=== PATIENT | female | born 1980 | race Caucasian/White ===

== ENCOUNTER 2016-10-29 19:40 | Emergency (ER) | payer BC, OTHER ==
[2016-10-29] MEDS ORDERED: METOCLOPRAMIDE 5 MG/ML 2 ML VIAL IVP STA (21:35)
[2016-10-29] MEDS ORDERED: KETOROLAC 30 MG/ML 1 ML VIAL IVP STA (21:35)
[2016-10-29] MEDS ORDERED: diphenhydrAMINE 50 MG/ML 1 ML VIAL IVP STA (21:35)
--- NOTE | 2016-10-29 22:40 | ED ---
Headache HPI - General Chief Complaint: Headache Stated Complaint: migraine Time Seen by Provider: 10/29/16 20:15 Mode of arrival: ambulatory Limitations: no limitations - History of Present Illness Initial Comments: 36-year-old female presented for evaluation of headache that started yesterday. She states that she has a past medical history of normal pressure hydrocephalus for which she follows with a neurologist. At the time of her diagnosis in May 2017 she received a lumbar puncture which improved some of her symptoms of dizziness at that time but her headache persisted. An MRI at the time stated in the diagnosis of normal pressure hydrocephalus but her neurologist after further review raised concern for a Chiari malformation and a possible AVM. She was referred to a neurosurgeon who she is going to see on November 10 at [facility] (Dr. Guallpa). His current headache is similar previous ones but was not responsive to her home medications for management. She states that there is associated vomiting but denies any vision changes or other associated symptoms. She denies any fever, chills, ataxia, syncope. - Related Data Home Medications Medication Instructions Recorded Confirmed Ascorbic Acid [Vitamin C] 500 mg PO DAILY 05/15/16 10/29/16 Cholecalciferol [Vitamin D3] 1,000 unit PO DAILY 05/15/16 10/29/16 Escitalopram [Lexapro] 10 mg PO DAILY 05/15/16 10/29/16 Ferrous Sulfate [Feosol] 325 mg PO DAILY 05/15/16 10/29/16 Topiramate [Topamax] 100 mg PO BID 05/15/16 10/29/16 Multivitamins, Thera [Multivitamin] 1 tab PO DAILY 05/27/16 10/29/16 Rizatriptan Benzoate [Maxalt] 10 mg PO DAILY PRN 05/27/16 10/29/16 Aspirin/Acetaminophen/Caffeine 2 tab PO Q8H PRN 10/29/16 10/29/16 [Excedrin Migraine Caplet] Naproxen Sodium [Aleve] 440 mg PO Q6H PRN 10/29/16 10/29/16 Allergies Allergy/AdvReac Type Severity Reaction Status Date / Time latex Allergy Mild Rash/Hives Verified 10/29/16 19:58 Review of Systems ROS Statement: Those systems with pertinent positive or pertinent negative responses have been documented in the HPI. ROS Other: All systems not noted in ROS Statement are negative. Constitutional: Denies: fever, chills Eyes: Denies: eye pain, eye discharge, vision change ENT: Denies: ear pain, throat pain, hearing loss Respiratory: Denies: cough, dyspnea, wheezes, hemoptysis Cardiovascular: Denies: chest pain, palpitations Endocrine: Denies: polydipsia, polyuria Gastrointestinal: Reports: nausea, vomiting. Denies: abdominal pain Genitourinary: Denies: urgency, dysuria Musculoskeletal: Denies: back pain, myalgia Skin: Denies: rash, lesions Neurological: Reports: headache. Denies: weakness, numbness, paresthesias, confusion, abnormal gait, vertigo Psychiatric: Denies: anxiety, depression Past Medical History Past Medical History: Diabetes Mellitus Additional Past Medical History / Comment(s): gestational diabetes hydrocephalus, migraines History of Any Multi-Drug Resistant Organisms: MRSA Date of last positivie culture/infection: 2010 MDRO Source:: upper left thigh Additional Past Surgical History / Comment(s): 1. Laparoscopy 2. D&C Past Anesthesia/Blood Transfusion Reactions: No Reported Reaction Past Psychological History: No Psychological Hx Reported Smoking Status: Never smoker Past Alcohol Use History: Rare Past Drug Use History: None Reported - Past Family History Mother Family Medical History: Cancer General Exam Limitations: no limitations General appearance: alert, in no apparent distress Head exam: Present: atraumatic, normocephalic Eye exam: Present: normal appearance, PERRL, EOMI. Absent: scleral icterus, conjunctival injection, nystagmus Pupils: Present: normal accommodation. Absent: irregular, unequal, miosis, mydriatic ENT exam: Present: normal exam, normal oropharynx, mucous membranes moist Neck exam: Present: normal inspection, tenderness Respiratory exam: Present: normal lung sounds bilaterally. Absent: respiratory distress, wheezes, rales Cardiovascular Exam: Present: regular rate, normal rhythm. Absent: bradycardia , tachycardia, irregular rhythm GI/Abdominal exam: Present: soft. Absent: distended, tenderness, guarding Rectal exam: Present: deferred Extremities exam: Present: normal inspection, full ROM Back exam: Present: normal inspection, full ROM Neurological exam: Present: alert, oriented X3, CN II-XII intact, normal gait, motor sensory deficit, reflexes normal. Absent: altered, abnormal gait Psychiatric exam: Present: normal affect, normal mood Skin exam: Present: warm, dry, intact Course Vital Signs 10/29/16 10/29/16 10/29/16 19:48 21:45 22:50 Temperature 98.7 F 98.5 F 98.2 F Pulse Rate 73 73 68 Respiratory 18 16 18 Rate Blood Pressure 123/73 116/70 114/68 O2 Sat by Pulse 98 100 100 Oximetry Medical Decision Making - Medical Decision Making 36-year-old female with past medical history of normal pressure hydrocephalus diagnosed in May 2016 presented for evaluation of headache that she's had since yesterday. She states that her normal medications have not provided any relief although the headache is similar to previous presentations. At the time of her diagnosis of normal pressure hydrocephalus she did receive a lumbar puncture which did not improve her headache but improved some of her other symptoms of dizziness. She has an appointment to see a neurosurgeon at [facility] as the MRI at the time of diagnosis of normal pressure hydrocephalus revealed possible Chiari malformation and AVM. Physical exam of the patient reveals tender nerves II through XII intact without focal neurologic deficit. There is no ataxia and the patient has a normal gait and station. Pupils are equal round and reactive to light and accommodation. The rest of her physical examination is benign. We'll provide patient with headache cocktail and reevaluate. On reevaluation the patient had resolution of her headache and was no longer feeling nauseated. Discussion was had with the patient concerning lumbar puncture for symptomatic treatment at this time. Through shared decision making it was decided that a lumbar puncture would not be pursued. She stated that due to her symptoms resolving with medical management she would prefer not to have a lumbar puncture. She was informed that if her symptoms should worsen or persist following discharge she should immediately return to the ED for further evaluation including but not limited to: Intractable headache, dizziness /lightheadedness, vision changes, ataxia, frequent falling, altered mental status, syncope. She was further advised to make an follow-up appointment with her primary care physician and her neurologist. She was also informed that she should make contact with her neurosurgeon she is supposed to have an appointment with on November 10 and informed him of this visit to the ED. The patient acknowledged an understanding of all this information and agreed with this plan of care. Disposition Clinical Impression: Headache Disposition: HOME SELF-CARE Condition: Stable Instructions: Acute Headache (ED) Referrals: Heri Moore III, MD [Primary Care Provider] - 1-2 days Remy Gutierrez MD [STAFF PHYSICIAN] - 1-2 days Time of Disposition: 22:39
[2016-10-29 23:03] VITALS: BP 114/68; PULSE 68; RESP 18; TEMP 98.2
== END 2016-10-29 22:50 | disposition home or self-care (01) ==
LOC: EC 19:40
DX: R51 Headache (principal); G43.909 Migraine, unspecified, not intractable, without status migrainosus; Z79.899 Other long term (current) drug therapy; Z91.040 Latex allergy status; Z86.14 Personal history of Methicillin resistant Staphylococcus aureus infection
CPT/HCPCS: 96374; 96375; 99283; J1200; J2765; J1885

== ENCOUNTER 2018-11-29 20:35 | Emergency (ER) | payer BC ==
[2018-11-29] MEDS ORDERED: METOCLOPRAMIDE 5 MG/ML 2 ML VIAL IVP STA (21:46)
[2018-11-29] MEDS ORDERED: diphenhydrAMINE 50 MG/ML 1 ML VIAL IVP STA (21:46)
[2018-11-29] MEDS ORDERED: SODIUM CHLORIDE 0.9% 500 ML 500 ML IV STA (21:46)
[2018-11-29] MEDS ORDERED: MAGNESIUM SULFATE-D5W PMX 1 GM in DEXTROSE/WATER 1 100ML.BAG IVPB ONE (21:47)
[2018-11-29 22:24] LABS: Anion Gap 11 mmol/L; Blood Urea Nitrogen 9 mg/dL (7-17); Calcium 9.4 mg/dL (8.4-10.2); Carbon Dioxide 18 mmol/L (22-30); Chloride 113 mmol/L (98-107); Glucose 105 mg/dL (74-99); INR 0.9 (<1.2); Partial Thromboplastin Time 22.5 sec (22.0-30.0); Potassium 3.6 mmol/L (3.5-5.1); Prothrombin Time 10.2 sec (9.0-12.0); Sodium 142 mmol/L (137-145)
[2018-11-29 22:27] LABS: Basophils # (A) 0.1 k/uL (0-0.2); Basophils % (A) 1 %; Eosinophils # (A) 0.3 k/uL (0-0.7); Eosinophils % (A) 3 %; HCT 37.1 % (34.0-46.0); HGB 10.8 gm/dL (11.4-16.0); Hypochromasia Moderate; Lymphocytes # (A) 3.2 k/uL (1.0-4.8); Lymphocytes % (A) 35 %; MCH 21.5 pg (25.0-35.0); MCV 74.2 fL (80.0-100.0); Mean Platelet Volume 7.5; Microcytosis Slight; Monocytes # (A) 0.4 k/uL (0-1.0); Monocytes % (A) 4 %; Neutrophils # (A) 5.1 k/uL (1.3-7.7); Neutrophils % (A) 55 %; Platelet Count 265 k/uL (150-450); Poikilocytosis Slight; RBC 4.99 m/uL (3.80-5.40); RDW 15.8 % (11.5-15.5); WBC 9.2 k/uL (3.8-10.6)
--- NOTE | 2018-11-29 22:50 | CT ---
EXAM: CT Head Without Intravenous Contrast CLINICAL HISTORY: Spinal headache post lumbar puncture. History of hydrocephalus. Reason: Headache TECHNIQUE: Axial computed tomography images of the head/brain without intravenous contrast. CTDI is 49.1 mGy and DLP is 1087 mGy-cm. This CT exam was performed using one or more of the following dose reduction techniques: automated exposure control, adjustment of the mA and/or kV according to patient size, and/or use of iterative reconstruction technique. COMPARISON: CT head on 06/08/2016 FINDINGS: Brain: Unremarkable. No hemorrhage. No significant white matter disease. No edema. Ventricles: Stable mild enlargement of the lateral ventricles. Bones/joints: Unremarkable. No acute fracture. Soft tissues: Unremarkable. Sinuses: Polyp versus mucous retention cyst in the right anterior ethmoid air cell. Mastoid air cells: Unremarkable as visualized. No mastoid effusion. IMPRESSION: Stable mild enlargement of the lateral ventricles. No new abnormality identified.
--- NOTE | 2018-11-29 23:35 | ED ---
Headache HPI - General Chief Complaint: Headache Stated Complaint: Spinal headache Time Seen by Provider: 11/29/18 21:12 Source: patient Mode of arrival: ambulatory Limitations: no limitations - History of Present Illness Initial Comments: The patient is a 38-year-old female who presents to the emergency room with complaint of a headache. The patient has a history of pseudotumor. She was seen in Dr. Gutierrez's office yesterday and had a lumbar puncture performed. He did remove 18 mL of fluid from her spinal column. This is his second lumbar puncture that she has had performed. The first time he did remove 22 mL of fluid. She did not have any complications with that procedure. She went home and laid flat for 4 hours as instructed. She then began having a headache at 11 PM last night. When she lays flat, her headache is tolerable. She woke up this morning and took several combinations of medication. She has taken Maxalt and Imitrex. She has also taken [id number] Tylenol and Excedrin. She has had no improvement in her symptoms. 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 She admits that this is global in nature and she has photophobia. It is positional. The pain is made worse when she sits up. She denies any fevers or chills. No nausea or vomiting. She denies any visual changes to include blurred vision, double vision or seeing flashes of light. She denies any unilateral numbness or weakness. She denies any hearing changes. There are no other alleviating, precipitating or modifying factors. - Related Data Home Medications Medication Instructions Recorded Confirmed Ascorbic Acid [Vitamin C] 500 mg PO DAILY 05/15/16 11/29/18 Cholecalciferol [Vitamin D3] 1,000 unit PO DAILY 05/15/16 11/29/18 Ferrous Sulfate [Feosol] 325 mg PO DAILY 05/15/16 11/29/18 Multivitamins, Thera [Multivitamin] 1 tab PO DAILY 05/27/16 11/29/18 Rizatriptan Benzoate [Maxalt] 10 mg PO DAILY PRN 05/27/16 11/29/18 Aspirin/Acetaminophen/Caffeine 2 tab PO Q8H PRN 10/29/16 11/29/18 [Excedrin Migraine Caplet] Naproxen Sodium [Aleve] 440 mg PO Q12HR 11/29/18 11/29/18 SUMAtriptan SUCCINATE [Imitrex] 50 mg PO DAILY PRN 11/29/18 11/29/18 Topiramate [Topamax] 200 mg PO BID 11/29/18 11/29/18 Allergies Allergy/AdvReac Type Severity Reaction Status Date / Time latex Allergy Mild Rash/Hives Verified 11/29/18 21:18 Review of Systems ROS Statement: Those systems with pertinent positive or pertinent negative responses have been documented in the HPI. ROS Other: All systems not noted in ROS Statement are negative. Past Medical History Past Medical History: Diabetes Mellitus Additional Past Medical History / Comment(s): gestational diabetes hydrocephalus, migraines History of Any Multi-Drug Resistant Organisms: MRSA Date of last positivie culture/infection: 2010 MDRO Source:: upper left thigh Additional Past Surgical History / Comment(s): 1. Laparoscopy 2. D&C Past Anesthesia/Blood Transfusion Reactions: No Reported Reaction Past Psychological History: No Psychological Hx Reported Smoking Status: Never smoker Past Alcohol Use History: Rare Past Drug Use History: None Reported - Past Family History Mother Family Medical History: Cancer General Exam Limitations: no limitations General appearance: alert, in no apparent distress Head exam: Present: atraumatic, normocephalic, normal inspection Eye exam: Present: normal appearance, PERRL, EOMI. Absent: scleral icterus, conjunctival injection, periorbital swelling ENT exam: Present: normal exam, mucous membranes moist Neck exam: Present: normal inspection. Absent: tenderness, meningismus, lymphadenopathy Respiratory exam: Present: normal lung sounds bilaterally. Absent: respiratory distress, wheezes, rales, rhonchi, stridor Cardiovascular Exam: Present: regular rate, normal rhythm, normal heart sounds. Absent: systolic murmur, diastolic murmur, rubs, gallop, clicks GI/Abdominal exam: Present: soft, normal bowel sounds. Absent: distended, tenderness, guarding, rebound, rigid Extremities exam: Present: normal inspection, full ROM, normal capillary refill. Absent: tenderness, pedal edema, joint swelling, calf tenderness Back exam: Present: normal inspection Neurological exam: Present: alert, oriented X3, CN II-XII intact, other (Finger to nose is symmetric bilaterally. No dysdiadochokinesia. NIH is 0. Negative pronator drift. No truncal ataxia) Psychiatric exam: Present: normal affect, normal mood Skin exam: Present: warm, dry, intact, normal color. Absent: rash Course Vital Signs 11/29/18 11/29/18 11/29/18 21:05 22:57 23:38 Temperature 97.5 F L 98.4 F Pulse Rate 73 72 69 Respiratory 18 16 18 Rate Blood Pressure 125/86 99/63 110/69 O2 Sat by Pulse 99 99 98 Oximetry Medical Decision Making - Medical Decision Making The patient was seen in room 23. She is hooked up to continuous pulse ox and cardiac monitoring. I did discuss the diagnosis, differential diagnosis and treatment options. I did recommend laboratory studies in preparation for a blood patch. The patient does have IV access established. She is given 10 mg of Reglan, 25 mg of Benadryl, and 1 g of magnesium IV. I did repeat a computed tomography scan of the patient's head is she is reporting symptoms different than her pseudotumor headaches. Upon return results I did discuss them with the patient. After medication administration the patient is allowed to sit up. She states that she has return of her symptoms. I did offer a blood patch however the patient refused. She admits that she would like to follow up with her neurologist tomorrow in office. I did inform the patient if she has any new or worsening symptoms that she should return to the emergency room. Patient was in agreement with the treatment plan and she was discharged home in stable condition - Differential Diagnosis Migraine cephalgia, post lumbar puncture cephalgia - Lab Data Result diagrams: 11/29/18 22:01 11/29/18 22:01 Lab Results 11/29/18 11/29/18 11/29/18 Range/Units 22:01 22:01 22:01 WBC 9.2 (3.8-10.6) k/uL RBC 4.99 (3.80-5.40) m/uL Hgb 10.8 L (11.4-16.0) gm/dL Hct 37.1 (34.0-46.0) % MCV 74.2 L (80.0-100.0) fL MCH 21.5 L (25.0-35.0) pg MCHC 29.0 L (31.0-37.0) g/dL RDW 15.8 H (11.5-15.5) % Plt Count 265 (150-450) k/uL Neutrophils % 55 % Lymphocytes % 35 % Monocytes % 4 % Eosinophils % 3 % Basophils % 1 % Neutrophils # 5.1 (1.3-7.7) k/uL Lymphocytes # 3.2 (1.0-4.8) k/uL Monocytes # 0.4 (0-1.0) k/uL Eosinophils # 0.3 (0-0.7) k/uL Basophils # 0.1 (0-0.2) k/uL Hypochromasia Moderate Poikilocytosis Slight Microcytosis Slight PT 10.2 (9.0-12.0) sec INR 0.9 (<1.2) APTT 22.5 (22.0-30.0) sec Sodium 142 (137-145) mmol/L Potassium 3.6 (3.5-5.1) mmol/L Chloride 113 H (98-107) mmol/L Carbon Dioxide 18 L (22-30) mmol/L Anion Gap 11 mmol/L BUN 9 (7-17) mg/dL Creatinine 0.87 (0.52-1.04) mg/dL Est GFR (CKD-EPI)AfAm >90 (>60 ml/min/1.73 sqM) Est GFR (CKD-EPI)NonAf 84 (>60 ml/min/1.73 sqM) Glucose 105 H (74-99) mg/dL Calcium 9.4 (8.4-10.2) mg/dL - Radiology Data Radiology results: report reviewed CT of the patient's brain demonstrates no acute findings Disposition Clinical Impression: Headache following lumbar puncture, Pseudotumor Disposition: HOME SELF-CARE Condition: Good Instructions (If sedation given, give patient instructions): Acute Headache (ED) Additional Instructions: Please make an appointment with your neurologist tomorrow for further evaluation. Return to the emergency department for any new or worsening symptoms Is patient prescribed a controlled substance at d/c from ED?: No Referrals: Heri Moore III, MD [Primary Care Provider] - 1-2 days Remy Gutierrez MD [Medical Doctor] - 1-2 days Time of Disposition: 23:33
[2018-11-29 23:39] VITALS: BP 110/69; PULSE 69; RESP 18; TEMP 98.4
== END 2018-11-29 23:45 | disposition home or self-care (01) ==
LOC: EC 20:35
DX: G97.1 Other reaction to spinal and lumbar puncture (principal); G93.2 Benign intracranial hypertension; G91.9 Hydrocephalus, unspecified; E11.9 Type 2 diabetes mellitus without complications; G43.909 Migraine, unspecified, not intractable, without status migrainosus; Z79.1 Long term (current) use of non-steroidal anti-inflammatories (NSAID); Z79.899 Other long term (current) drug therapy; Z91.040 Latex allergy status; Y84.4 Aspiration of fluid as the cause of abnormal reaction of the patient, or of later complication, without mention of misadventure at the time of the procedure
CPT/HCPCS: 36415; 80048; 85025; 85610; 85730; 70450; 99284; 96365; 96375 ×2; J1200; J2765; J3475

== ENCOUNTER 2019-05-06 15:01 | Emergency (ER) | payer BC, OTHER ==
[2019-05-06 15:05] VITALS: TEMP 98.6
[2019-05-06] MEDS ORDERED: SODIUM CHLORIDE 0.9% 1,000 ML IV STA (15:18)
[2019-05-06] MEDS ORDERED: PANTOPRAZOLE 40 MG/10 ML VIAL IVP STA (15:18)
[2019-05-06] MEDS ORDERED: DICYCLOMINE 20 MG TAB PO STA (15:21)
[2019-05-06] MEDS ORDERED: ONDANSETRON 4 MG/2 ML VIAL IVP STA (16:24)
[2019-05-06] MEDS ORDERED: MAG HYDROX/AL HYDROX/SIMETH 30 ML, HYOSCYAMINE ELIXIR 10 ML, CIMETIDINE HCL 300 MG, LID... PO STA ×4 (16:26)
--- NOTE | 2019-05-06 16:52 | ED ---
Abdominal Pain HPI - General Chief Complaint: Abdominal Pain Stated Complaint: Epigastric pain Time Seen by Provider: 05/06/19 15:07 Source: patient Mode of arrival: ambulatory Limitations: no limitations - History of Present Illness Initial Comments: Patient is a 38-year-old female presenting to the emergency Department with complaints of epigastric pain since this morning. Patient also admits to a few episodes of nausea and vomiting. Patient states she was napping with her grandchild and woke up with a sudden onset of epigastric pain and cramping. Patient states she tried using the restroom but was not able have a bowel movement. Patient denies any fever, chills, diarrhea. Patient did have a normal bowel movement yesterday. Patient admits to history of 3 laparoscopic surgeries. Patient did have cold-like symptoms 1 week ago but those have since cleared. Patient states she has not been having much of an appetite the last few days. Patient denies any urinary symptoms at this time. Patient denies any chest pain, shortness of breath. No other complaints at this time. Upon arrival to ER, vital signs stable, afebrile. - Related Data Home Medications Medication Instructions Recorded Confirmed Ascorbic Acid [Vitamin C] 500 mg PO DAILY 05/15/16 11/29/18 Cholecalciferol [Vitamin D3] 1,000 unit PO DAILY 05/15/16 11/29/18 Ferrous Sulfate [Feosol] 325 mg PO DAILY 05/15/16 11/29/18 Multivitamins, Thera [Multivitamin] 1 tab PO DAILY 05/27/16 11/29/18 Rizatriptan Benzoate [Maxalt] 10 mg PO DAILY PRN 05/27/16 11/29/18 Aspirin/Acetaminophen/Caffeine 2 tab PO Q8H PRN 10/29/16 11/29/18 [Excedrin Migraine Caplet] Naproxen Sodium [Aleve] 440 mg PO Q12HR 11/29/18 11/29/18 SUMAtriptan SUCCINATE [Imitrex] 50 mg PO DAILY PRN 11/29/18 11/29/18 Topiramate [Topamax] 200 mg PO BID 11/29/18 11/29/18 Previous Rx's Medication Instructions Recorded Omeprazole 40 mg PO DAILY 14 Days #14 05/06/19 capsule. Ondansetron Odt [Zofran Odt] 4 mg PO Q8HR PRN #10 tab 05/06/19 Allergies Allergy/AdvReac Type Severity Reaction Status Date / Time latex Allergy Mild Rash/Hives Verified 05/06/19 15:05 Review of Systems ROS Statement: Those systems with pertinent positive or pertinent negative responses have been documented in the HPI. ROS Other: All systems not noted in ROS Statement are negative. Past Medical History Past Medical History: Diabetes Mellitus Additional Past Medical History / Comment(s): gestational diabetes hydrocephalus, migraines History of Any Multi-Drug Resistant Organisms: MRSA Date of last positivie culture/infection: 2010 MDRO Source:: upper left thigh Additional Past Surgical History / Comment(s): 1. Laparoscopy 2. D&C Past Anesthesia/Blood Transfusion Reactions: No Reported Reaction Past Psychological History: No Psychological Hx Reported Smoking Status: Never smoker Past Alcohol Use History: Rare Past Drug Use History: None Reported - Past Family History Mother Family Medical History: Cancer General Exam - General Exam Comments Initial Comments: GENERAL: Well-appearing, well-nourished and in no acute distress. HEAD: Atraumatic, normocephalic. EYES: Pupils equal round and reactive to light, extraocular movements intact, sclera anicteric, conjunctiva are normal. ENT: TMs normal, nares patent, oropharynx clear without exudates. Moist mucous membranes. NECK: Normal range of motion, supple without lymphadenopathy or JVD. LUNGS: Breath sounds clear to auscultation bilaterally and equal. No wheezes rales or rhonchi. HEART: Regular rate and rhythm without murmurs, rubs or gallops. ABDOMEN: Tenderness with palpation epigastric and left upper upper quadrant. Soft, normoactive bowel sounds. No guarding, no rebound. No masses appreciated. : Deferred EXTREMITIES: Normal range of motion, no pitting or edema. No clubbing or cyanosis. NEUROLOGICAL: Cranial nerves II through XII grossly intact. Normal speech, normal gait. PSYCH: Normal mood, normal affect. SKIN: Warm, Dry, normal turgor, no rashes or lesions noted. Limitations: no limitations Course Vital Signs 05/06/19 05/06/19 05/06/19 15:02 16:09 17:40 Temperature 98.6 F Pulse Rate 71 67 66 Respiratory 16 18 16 Rate Blood Pressure 118/78 122/80 124/76 O2 Sat by Pulse 100 97 99 Oximetry Medical Decision Making - Medical Decision Making Patient is a 38-year-old female presenting with epigastric pain since this morning. Patient is also having episodes of nausea and vomiting. Upon arrival to ER vital signs are stable, afebrile. On exam patient has tenderness in the epigastric and left upper quadrant. CBC shows white count 11.9. CMP is within normal limits. Lactic acid is 1.2. UA is normal for for large amount of blood however patient is on her menstrual cycle. Urination HCG is negative. Patient was given some fluids, Protonix, Zofran, GI cocktail. Patient reports improvement in symptoms. It was discussed with patient this is most likely gastritis. Patient will be given perception for Zofran and omeprazole to go home with. Discussed with patient follow-up with primary care. Patient is in agreement with this plan and is wanting to go home. Return parameters were discussed with the patient and she verbalized understanding. All patient's questions were answered. Case discussed with Dr. Urena. - Lab Data Result diagrams: 05/06/19 16:05 05/06/19 16:05 Lab Results 05/06/19 05/06/19 05/06/19 Range/Units 16:05 16:05 16:05 WBC 11.9 H (3.8-10.6) k/uL RBC 4.60 (3.80-5.40) m/uL Hgb 10.6 L (11.4-16.0) gm/dL Hct 34.4 (34.0-46.0) % MCV 74.8 L (80.0-100.0) fL MCH 23.0 L (25.0-35.0) pg MCHC 30.8 L (31.0-37.0) g/dL RDW 17.4 H (11.5-15.5) % Plt Count 294 (150-450) k/uL Neutrophils % 85 % Lymphocytes % 9 % Monocytes % 4 % Eosinophils % 2 % Basophils % 0 % Neutrophils # 10.1 H (1.3-7.7) k/uL Lymphocytes # 1.1 (1.0-4.8) k/uL Monocytes # 0.4 (0-1.0) k/uL Eosinophils # 0.2 (0-0.7) k/uL Basophils # 0.0 (0-0.2) k/uL Hypochromasia Marked Poikilocytosis Slight Anisocytosis Slight Microcytosis Slight Sodium 142 (137-145) mmol/L Potassium 3.9 (3.5-5.1) mmol/L Chloride 112 H (98-107) mmol/L Carbon Dioxide 18 L (22-30) mmol/L Anion Gap 12 mmol/L BUN 8 (7-17) mg/dL Creatinine 0.76 (0.52-1.04) mg/dL Est GFR (CKD-EPI)AfAm >90 (>60 ml/min/1.73 sqM) Est GFR (CKD-EPI)NonAf >90 (>60 ml/min/1.73 sqM) Glucose 141 H (74-99) mg/dL Plasma Lactic Acid Kalia 1.2 (0.7-2.0) mmol/L Calcium 9.1 (8.4-10.2) mg/dL Total Bilirubin 0.5 (0.2-1.3) mg/dL AST 20 (14-36) U/L ALT 11 (9-52) U/L Alkaline Phosphatase 72 (38-126) U/L Total Protein 7.8 (6.3-8.2) g/dL Albumin 4.4 (3.5-5.0) g/dL Amylase 56 (30-110) U/L Lipase 75 (23-300) U/L Urine Color Urine Appearance (Clear) Urine pH (5.0-8.0) Ur Specific Nice (1.001-1.035) Urine Protein (Negative) Urine Glucose (UA) (Negative) Urine Ketones (Negative) Urine Blood (Negative) Urine Nitrite (Negative) Urine Bilirubin (Negative) Urine Urobilinogen (<2.0) mg/dL Ur Leukocyte Esterase (Negative) Urine RBC (0-5) /hpf Ur Squamous Epith Cells (0-4) /hpf Amorphous Sediment (None) /hpf Urine Bacteria (None) /hpf Urine Mucus (None) /hpf Urine HCG, Qual (Not Detectd) 05/06/19 05/06/19 Range/Units 17:00 17:00 WBC (3.8-10.6) k/uL RBC (3.80-5.40) m/uL Hgb (11.4-16.0) gm/dL Hct (34.0-46.0) % MCV (80.0-100.0) fL MCH (25.0-35.0) pg MCHC (31.0-37.0) g/dL RDW (11.5-15.5) % Plt Count (150-450) k/uL Neutrophils % % Lymphocytes % % Monocytes % % Eosinophils % % Basophils % % Neutrophils # (1.3-7.7) k/uL Lymphocytes # (1.0-4.8) k/uL Monocytes # (0-1.0) k/uL Eosinophils # (0-0.7) k/uL Basophils # (0-0.2) k/uL Hypochromasia Poikilocytosis Anisocytosis Microcytosis Sodium (137-145) mmol/L Potassium (3.5-5.1) mmol/L Chloride (98-107) mmol/L Carbon Dioxide (22-30) mmol/L Anion Gap mmol/L BUN (7-17) mg/dL Creatinine (0.52-1.04) mg/dL Est GFR (CKD-EPI)AfAm (>60 ml/min/1.73 sqM) Est GFR (CKD-EPI)NonAf (>60 ml/min/1.73 sqM) Glucose (74-99) mg/dL Plasma Lactic Acid Kalia (0.7-2.0) mmol/L Calcium (8.4-10.2) mg/dL Total Bilirubin (0.2-1.3) mg/dL AST (14-36) U/L ALT (9-52) U/L Alkaline Phosphatase (38-126) U/L Total Protein (6.3-8.2) g/dL Albumin (3.5-5.0) g/dL Amylase (30-110) U/L Lipase (23-300) U/L Urine Color Yellow Urine Appearance Turbid H (Clear) Urine pH 7.5 (5.0-8.0) Ur Specific Nice 1.019 (1.001-1.035) Urine Protein Trace H (Negative) Urine Glucose (UA) Negative (Negative) Urine Ketones 1+ H (Negative) Urine Blood Large H (Negative) Urine Nitrite Negative (Negative) Urine Bilirubin Negative (Negative) Urine Urobilinogen 3.0 (<2.0) mg/dL Ur Leukocyte Esterase Negative (Negative) Urine RBC 4 (0-5) /hpf Ur Squamous Epith Cells 1 (0-4) /hpf Amorphous Sediment Occasional H (None) /hpf Urine Bacteria Few H (None) /hpf Urine Mucus Rare H (None) /hpf Urine HCG, Qual Not Detected (Not Detectd) Disposition Clinical Impression: Abdominal pain, Gastritis, Nausea & vomiting Disposition: HOME SELF-CARE Condition: Stable Instructions (If sedation given, give patient instructions): Gastritis (ED), Abdominal Pain (ED) Additional Instructions: Please return to the Emergency Department if symptoms worsen or any other concerns. Prescriptions: Omeprazole 40 mg PO DAILY 14 Days #14 capsule. Ondansetron Odt [Zofran Odt] 4 mg PO Q8HR PRN #10 tab PRN Reason: Nausea Is patient prescribed a controlled substance at d/c from ED?: No Referrals: Heri Moore III, MD [Primary Care Provider] - 1-2 days
[2019-05-06 16:59] LABS: Anisocytosis Slight; Basophils % (A) 0 %; Eosinophils # (A) 0.2 k/uL (0-0.7); Eosinophils % (A) 2 %; HCT 34.4 % (34.0-46.0); HGB 10.6 gm/dL (11.4-16.0); Hypochromasia Marked; Lymphocytes # (A) 1.1 k/uL (1.0-4.8); Lymphocytes % (A) 9 %; MCHC 30.8 g/dL (31.0-37.0); MCV 74.8 fL (80.0-100.0); Microcytosis Slight; Monocytes # (A) 0.4 k/uL (0-1.0); Monocytes % (A) 4 %; Neutrophils # (A) 10.1 k/uL (1.3-7.7); Neutrophils % (A) 85 %; Platelet Count 294 k/uL (150-450); Poikilocytosis Slight; RDW 17.4 % (11.5-15.5); WBC 11.9 k/uL (3.8-10.6)
[2019-05-06 17:04] LABS: ALT 11 U/L (9-52); AST 20 U/L (14-36); African American GFR (CKD) >90 (>60 ml/min/1.73 sqM); Albumin 4.4 g/dL (3.5-5.0); Alkaline Phosphatase 72 U/L (38-126); Amylase 56 U/L (30-110); Anion Gap 12 mmol/L; Blood Urea Nitrogen 8 mg/dL (7-17); Calcium 9.1 mg/dL (8.4-10.2); Carbon Dioxide 18 mmol/L (22-30); Chloride 112 mmol/L (98-107); Glucose 141 mg/dL (74-99); Potassium 3.9 mmol/L (3.5-5.1); Sodium 142 mmol/L (137-145); Total Bilirubin 0.5 mg/dL (0.2-1.3); Total Protein 7.8 g/dL (6.3-8.2)
[2019-05-06 17:41] VITALS: BP 124/76; PULSE 66; RESP 16
[2019-05-06 17:51] LABS: Amorphous Sediment,Urine Occasional /hpf; Appearance,Urine Turbid (Clear); Bacteria,Urine Few /hpf; Bilirubin,Urine Negative (Negative); Blood,Urine Large (Negative); Color,Urine Yellow; Glucose,Urine (UA) Negative (Negative); Ketones,Urine 1+ (Negative); Leukocyte Esterase,Urine Negative (Negative); Mucus,Urine Rare /hpf; Nitrite,Urine Negative (Negative); PH, Urine 7.5 (5.0-8.0); Protein,Urine Trace (Negative); RBC,Urine 4 /hpf (0-5); Specific Gravity,Urine 1.019 (1.001-1.035); Squamous Epithelial Cell,Urine 1 /hpf (0-4)
== END 2019-05-06 18:44 | disposition home or self-care (01) ==
LOC: EC 15:01
DX: K29.70 Gastritis, unspecified, without bleeding (principal); Z91.040 Latex allergy status; Z79.1 Long term (current) use of non-steroidal anti-inflammatories (NSAID); Z79.899 Other long term (current) drug therapy; Z86.14 Personal history of Methicillin resistant Staphylococcus aureus infection; Z86.69 Personal history of other diseases of the nervous system and sense organs
CPT/HCPCS: 36415; 80053; 82150; 83605; 83690; 85025; 81001; 81025; 99284; 96374; 96375; 96361; J2405; C9113

== ENCOUNTER 2019-05-13 17:47 | Emergency (ER) | payer OTHER ==
[2019-05-13] MEDS ORDERED: ONDANSETRON 4 MG/2 ML VIAL IVP STA (18:08)
[2019-05-13] MEDS ORDERED: HYDROmorphone 0.5 MG/0.5 ML SYRINGE IVP STA (18:08)
[2019-05-13] MEDS ORDERED: SODIUM CHLORIDE 0.9% 500 ML 500 ML IV STA (18:08)
[2019-05-13] MEDS ORDERED: SODIUM CHLORIDE 0.9% 1,000 ML IV STA (18:08)
[2019-05-13] MEDS ORDERED: ACETAMINOPHEN TAB 500 MG TAB PO STA (18:09)
--- NOTE | 2019-05-13 18:11 | ED ---
Abdominal Pain HPI - General Chief Complaint: Abdominal Pain Stated Complaint: LRQ PAIN Time Seen by Provider: 05/13/19 18:01 Source: patient Mode of arrival: ambulatory Limitations: no limitations - History of Present Illness Initial Comments: 38-year-old female patient presents to the emergency department today for evaluation of right lower quadrant abdominal pain and fever. Patient states that she has had severe pain to the right lower quadrant for the last 2 days. Patient states that the pain is sharp over the lower abdomen and only taking around it. She states that she has been nauseated throughout the day but denies any vomiting. States she's had decreased appetite. She last ate at 10 AM. Patient is also reporting cough and congestion. Today she has had intermittent fevers and chills. Has not taken any medication for fever. Patient has had 2 laparoscopic surgeries to the abdomen one exploratory, one for tubal ligation. She denies any hematuria, dysuria, urinary frequency, urinary urgency. Denies any constipation, diarrhea, hematochezia, melena. Patient denies any recent rash, shortness breath, chest pain, back pain, numbness, tingling, dizziness, weakness, headache, visual changes, or any other complaints. - Related Data Home Medications Medication Instructions Recorded Confirmed Ascorbic Acid [Vitamin C] 500 mg PO DAILY 05/15/16 11/29/18 Cholecalciferol [Vitamin D3] 1,000 unit PO DAILY 05/15/16 11/29/18 Ferrous Sulfate [Feosol] 325 mg PO DAILY 05/15/16 11/29/18 Multivitamins, Thera [Multivitamin] 1 tab PO DAILY 05/27/16 11/29/18 Rizatriptan Benzoate [Maxalt] 10 mg PO DAILY PRN 05/27/16 11/29/18 Aspirin/Acetaminophen/Caffeine 2 tab PO Q8H PRN 10/29/16 11/29/18 [Excedrin Migraine Caplet] Naproxen Sodium [Aleve] 440 mg PO Q12HR 11/29/18 11/29/18 SUMAtriptan SUCCINATE [Imitrex] 50 mg PO DAILY PRN 11/29/18 11/29/18 Topiramate [Topamax] 200 mg PO BID 11/29/18 11/29/18 Previous Rx's Medication Instructions Recorded Omeprazole 40 mg PO DAILY 14 Days #14 05/06/19 capsule.dr Ondansetron Odt [Zofran Odt] 4 mg PO Q8HR PRN #10 tab 05/06/19 Allergies Allergy/AdvReac Type Severity Reaction Status Date / Time latex Allergy Mild Rash/Hives Verified 05/06/19 15:05 Review of Systems ROS Statement: Those systems with pertinent positive or pertinent negative responses have been documented in the HPI. ROS Other: All systems not noted in ROS Statement are negative. Past Medical History Past Medical History: Diabetes Mellitus Additional Past Medical History / Comment(s): gestational diabetes hydrocephalus, migraines History of Any Multi-Drug Resistant Organisms: MRSA Date of last positivie culture/infection: 2010 MDRO Source:: upper left thigh Additional Past Surgical History / Comment(s): 1. Laparoscopy 2. D&C Past Anesthesia/Blood Transfusion Reactions: No Reported Reaction Past Psychological History: No Psychological Hx Reported Smoking Status: Never smoker Past Alcohol Use History: Rare Past Drug Use History: None Reported - Past Family History Mother Family Medical History: Cancer General Exam Limitations: no limitations General appearance: alert, in no apparent distress, other (This is a well- developed, well-nourished adult female patient in no acute distress. Vital signs upon presentation are temperature 103.0F, pulse 117, respirations 20, blood pressure 112/49, pulse ox 96% on room air.) Eye exam: Present: normal appearance, PERRL, EOMI. Absent: scleral icterus, conjunctival injection, periorbital swelling ENT exam: Present: normal exam, normal oropharynx, mucous membranes moist Respiratory exam: Present: normal lung sounds bilaterally. Absent: respiratory distress, wheezes, rales, rhonchi, stridor Cardiovascular Exam: Present: regular rate, normal rhythm, normal heart sounds. Absent: systolic murmur, diastolic murmur, rubs, gallop, clicks GI/Abdominal exam: Present: soft, tenderness (Right lower quadrant tenderness, suprapubic tenderness), guarding, normal bowel sounds. Absent: distended, rebound, rigid Neurological exam: Present: alert, oriented X3, CN II-XII intact Psychiatric exam: Present: normal affect, normal mood Skin exam: Present: warm, dry, intact, normal color. Absent: rash Course Vital Signs 05/13/19 05/13/19 17:52 19:29 Temperature 103.0 F H 99.0 F Pulse Rate 117 H 94 Respiratory 20 16 Rate Blood Pressure 112/49 98/59 O2 Sat by Pulse 96 99 Oximetry Medical Decision Making - Medical Decision Making 38-year-old female patient presents to the emergency department today for evaluation of right lower quadrant abdominal pain with intermittent fevers, nausea, and vomiting. Physical examination did reveal some abdominal guarding with right lower quadrant tenderness and suprapubic tenderness. Labs reviewed and did reveal elevated white blood cell count 15.1, hemoglobin 8.8 which is a change from 10.6 one week ago, potassium 3.3, glucose 124. Potassium will be replaced IV. We started Zosyn. My attending Dr. Irwin was in to see the patient, did discuss with the on-call surgeon who recommends transfer for interventional radiology and drain placement. She spoke to [facility] who does accept the patient. All findings and results have been discussed with the patient - Lab Data Result diagrams: 05/13/19 18:21 05/13/19 18:21 Lab Results 05/13/19 05/13/19 05/13/19 Range/Units 18:20 18:21 18:21 WBC 15.1 H (3.8-10.6) k/uL RBC 3.79 L (3.80-5.40) m/uL Hgb 8.8 L D (11.4-16.0) gm/dL Hct 27.5 L (34.0-46.0) % MCV 72.6 L (80.0-100.0) fL MCH 23.1 L (25.0-35.0) pg MCHC 31.9 (31.0-37.0) g/dL RDW 16.7 H (11.5-15.5) % Plt Count 330 (150-450) k/uL Neutrophils % 80 % Lymphocytes % 13 % Monocytes % 4 % Eosinophils % 1 % Basophils % 1 % Neutrophils # 12.1 H (1.3-7.7) k/uL Lymphocytes # 1.9 (1.0-4.8) k/uL Monocytes # 0.6 (0-1.0) k/uL Eosinophils # 0.2 (0-0.7) k/uL Basophils # 0.1 (0-0.2) k/uL Hypochromasia Moderate Poikilocytosis Slight Anisocytosis Slight Microcytosis Moderate Sodium 137 (137-145) mmol/L Potassium 3.3 L (3.5-5.1) mmol/L Chloride 100 (98-107) mmol/L Carbon Dioxide 27 (22-30) mmol/L Anion Gap 10 mmol/L BUN 5 L (7-17) mg/dL Creatinine 0.83 (0.52-1.04) mg/dL Est GFR (CKD-EPI)AfAm >90 (>60 ml/min/1.73 sqM) Est GFR (CKD-EPI)NonAf 89 (>60 ml/min/1.73 sqM) Glucose 124 H (74-99) mg/dL Plasma Lactic Acid Kalia (0.7-2.0) mmol/L Calcium 8.6 (8.4-10.2) mg/dL Total Bilirubin 0.8 (0.2-1.3) mg/dL AST 25 (14-36) U/L ALT 23 (9-52) U/L Alkaline Phosphatase 109 (38-126) U/L Total Protein 6.8 (6.3-8.2) g/dL Albumin 3.6 (3.5-5.0) g/dL Amylase 53 (30-110) U/L Lipase 101 (23-300) U/L Urine Color Yellow Urine Appearance Clear (Clear) Urine pH 6.5 (5.0-8.0) Ur Specific [place] 1.018 (1.001-1.035) Urine Protein 1+ H (Negative) Urine Glucose (UA) Negative (Negative) Urine Ketones Negative (Negative) Urine Blood Trace H (Negative) Urine Nitrite Negative (Negative) Urine Bilirubin Negative (Negative) Urine Urobilinogen 4.0 (<2.0) mg/dL Ur Leukocyte Esterase Small H (Negative) Urine RBC <1 (0-5) /hpf Urine WBC 16 H (0-5) /hpf Ur Squamous Epith Cells 1 (0-4) /hpf Urine Mucus Few H (None) /hpf 05/13/19 Range/Units 18:21 WBC (3.8-10.6) k/uL RBC (3.80-5.40) m/uL Hgb (11.4-16.0) gm/dL Hct (34.0-46.0) % MCV (80.0-100.0) fL MCH (25.0-35.0) pg MCHC (31.0-37.0) g/dL RDW (11.5-15.5) % Plt Count (150-450) k/uL Neutrophils % % Lymphocytes % % Monocytes % % Eosinophils % % Basophils % % Neutrophils # (1.3-7.7) k/uL Lymphocytes # (1.0-4.8) k/uL Monocytes # (0-1.0) k/uL Eosinophils # (0-0.7) k/uL Basophils # (0-0.2) k/uL Hypochromasia Poikilocytosis Anisocytosis Microcytosis Sodium (137-145) mmol/L Potassium (3.5-5.1) mmol/L Chloride (98-107) mmol/L Carbon Dioxide (22-30) mmol/L Anion Gap mmol/L BUN (7-17) mg/dL Creatinine (0.52-1.04) mg/dL Est GFR (CKD-EPI)AfAm (>60 ml/min/1.73 sqM) Est GFR (CKD-EPI)NonAf (>60 ml/min/1.73 sqM) Glucose (74-99) mg/dL Plasma Lactic Acid Kalia 1.1 (0.7-2.0) mmol/L Calcium (8.4-10.2) mg/dL Total Bilirubin (0.2-1.3) mg/dL AST (14-36) U/L ALT (9-52) U/L Alkaline Phosphatase (38-126) U/L Total Protein (6.3-8.2) g/dL Albumin (3.5-5.0) g/dL Amylase (30-110) U/L Lipase (23-300) U/L Urine Color Urine Appearance (Clear) Urine pH (5.0-8.0) Ur Specific [place] (1.001-1.035) Urine Protein (Negative) Urine Glucose (UA) (Negative) Urine Ketones (Negative) Urine Blood (Negative) Urine Nitrite (Negative) Urine Bilirubin (Negative) Urine Urobilinogen (<2.0) mg/dL Ur Leukocyte Esterase (Negative) Urine RBC (0-5) /hpf Urine WBC (0-5) /hpf Ur Squamous Epith Cells (0-4) /hpf Urine Mucus (None) /hpf - Radiology Data Radiology results: report reviewed, image reviewed CT abdomen and pelvis with contrast was obtained. Report was reviewed in its entirety. Impression by Dr. Dunne shows extensive inflammatory changes in the right lower quadrant that is suggestive of appendicitis with perforation and abscess. Appendix is difficult to identify with the extensive inflammatory change. There is small air bubbles consistent with perforation. Two-view x-ray of the chest is obtained. Report was reviewed in its entirety. Impression by Dr. Dunne shows normal chest. Disposition Clinical Impression: Perforated appendicitis Disposition: OTHER INSTITUTION NOT DEFINED Condition: Serious Referrals: Heri Moore III, MD [Primary Care Provider] - 1-2 days - Out of Hospital Transfer - Req. Specs Out of Hospital Transfer - Requested Specifics: Other [facility] ([facility])
[2019-05-13 18:30] LABS: Anisocytosis Slight; Basophils # (A) 0.1 k/uL (0-0.2); Basophils % (A) 1 %; Eosinophils # (A) 0.2 k/uL (0-0.7); Eosinophils % (A) 1 %; HCT 27.5 % (34.0-46.0); Hypochromasia Moderate; Lymphocytes # (A) 1.9 k/uL (1.0-4.8); Lymphocytes % (A) 13 %; MCH 23.1 pg (25.0-35.0); MCHC 31.9 g/dL (31.0-37.0); MCV 72.6 fL (80.0-100.0); Mean Platelet Volume 7.5; Microcytosis Moderate; Monocytes # (A) 0.6 k/uL (0-1.0); Monocytes % (A) 4 %; Neutrophils # (A) 12.1 k/uL (1.3-7.7); Neutrophils % (A) 80 %; Platelet Count 330 k/uL (150-450); Poikilocytosis Slight; RBC 3.79 m/uL (3.80-5.40); RDW 16.7 % (11.5-15.5); WBC 15.1 k/uL (3.8-10.6)
[2019-05-13 18:35] LABS: HGB 8.8 gm/dL (11.4-16.0)
[2019-05-13 18:40] LABS: ALT 23 U/L (9-52); AST 25 U/L (14-36); African American GFR (CKD) >90 (>60 ml/min/1.73 sqM); Albumin 3.6 g/dL (3.5-5.0); Alkaline Phosphatase 109 U/L (38-126); Amylase 53 U/L (30-110); Anion Gap 10 mmol/L; Blood Urea Nitrogen 5 mg/dL (7-17); Calcium 8.6 mg/dL (8.4-10.2); Carbon Dioxide 27 mmol/L (22-30); Chloride 100 mmol/L (98-107); Glucose 124 mg/dL (74-99); Potassium 3.3 mmol/L (3.5-5.1); Sodium 137 mmol/L (137-145); Total Bilirubin 0.8 mg/dL (0.2-1.3); Total Protein 6.8 g/dL (6.3-8.2)
[2019-05-13 19:05] LABS: Appearance,Urine Clear (Clear); Bilirubin,Urine Negative (Negative); Blood,Urine Trace (Negative); Color,Urine Yellow; Glucose,Urine (UA) Negative (Negative); Ketones,Urine Negative (Negative); Leukocyte Esterase,Urine Small (Negative); Mucus,Urine Few /hpf; Nitrite,Urine Negative (Negative); PH, Urine 6.5 (5.0-8.0); Protein,Urine 1+ (Negative); RBC,Urine <1 /hpf (0-5); Specific Gravity,Urine 1.018 (1.001-1.035); Squamous Epithelial Cell,Urine 1 /hpf (0-4); WBC,Urine 16 /hpf (0-5)
--- NOTE | 2019-05-13 19:10 | CT ---
EXAMINATION TYPE: CT abdomen pelvis w con DATE OF EXAM: 05/13/2019 COMPARISON: None HISTORY: Right lower quadrant abdominal pain and vomiting. CT DLP: 1061.5 mGycm Automated exposure control for dose reduction was used. TECHNIQUE: Helical acquisition of images was performed from the lung bases through the pelvis. CONTRAST: Performed without Oral Contrast and with IV Contrast, patient injected with 100ml mL of Isovue 300. FINDINGS: Lung bases are clear. There is no pleural effusion. Heart size is normal. Spleen is intact. Spleen is mildly enlarged and measures 15 cm. Liver shows no focal defect. Gallblad tory appears normal. There is no pancreatic mass. Stomach appears normal. There is no adrenal mass. Kidneys have normal size and contour. There is 1 cm cortical cyst lower macario e right kidney. There is no hydronephrosis. There is no retroperitoneal adenopathy. Ureters are not d ilated. Bladder is almost empty. There is mild free fluid in the pelvis. There is extensive fat stran ding right lower quadrant. There is some fluid in the right paracolic gutter. There are a few air maggie bles apparently at the medial aspect of the cecum. Lumbar spine is intact. Bony pelvis is intact. Uterus is anteverted. IMPRESSION: EXTENSIVE INFLAMMATORY CHANGES RIGHT LOWER QUADRANT THAT IS SUGGESTIVE OF APPENDICITIS WITH PERFORATI ON AND ABSCESS. APPENDIX APICAL TO IDENTIFY IN THE EXTENSIVE INFLAMMATORY CHANGE. THERE IS SMALL AIR BUBBLES CONSISTENT WITH PERFORATION.
--- NOTE | 2019-05-13 19:28 | XR ---
EXAMINATION TYPE: XR chest 2V DATE OF EXAM: 05/13/2019 COMPARISON: NONE HISTORY: Chest pain TECHNIQUE: Frontal and lateral views of the chest are obtained. FINDINGS: Heart and mediastinum are normal. Lungs are clear. Diaphragm is normal. Bony thorax appear s normal. IMPRESSION: Normal chest.
[2019-05-13 19:31] VITALS: RESP 16; TEMP 99
[2019-05-13] MEDS ORDERED: PIPERACILLIN-TAZOBACTAM 3.375 GM in SODIUM CHLORIDE 0.9% 100 ML IVPB STA (19:39)
[2019-05-13] MEDS ORDERED: SODIUM CHLORIDE 0.9% 1,000 ML IV ONE (20:13)
[2019-05-13] MEDS ORDERED: Potassium Replacement Protocol 1 EACH MISC MISCELLANE PRN ×2 (20:21→20:23)
[2019-05-13] MEDS ORDERED: SODIUM CHLORIDE 0.9% 1,000 ML IV SCH (20:30)
[2019-05-13] MEDS ORDERED: POTASSIUM CHLORIDE 10 MEQ in WATER FOR INJECTION 1 100ML.BAG IVPB SCH (21:00)
[2019-05-13] MEDS ORDERED: HYDROmorphone 1 MG/ML 1 ML SYRINGE IVP STA (21:43)
[2019-05-13 21:49] VITALS: BP 113/63; PULSE 82
--- NOTE | 2019-05-13 23:44 | ED ---
Medical Decision Making - Medical Decision Making Correction to previous addendum, patient was not accepted at [facility]. [facility] [place] accepting. Pt will be transferred. - Lab Data Result diagrams: 05/13/19 18:21 05/13/19 18:21 Lab Results 05/13/19 05/13/19 05/13/19 Range/Units 18:20 18:21 18:21 WBC 15.1 H (3.8-10.6) k/uL RBC 3.79 L (3.80-5.40) m/uL Hgb 8.8 L D (11.4-16.0) gm/dL Hct 27.5 L (34.0-46.0) % MCV 72.6 L (80.0-100.0) fL MCH 23.1 L (25.0-35.0) pg MCHC 31.9 (31.0-37.0) g/dL RDW 16.7 H (11.5-15.5) % Plt Count 330 (150-450) k/uL Neutrophils % 80 % Lymphocytes % 13 % Monocytes % 4 % Eosinophils % 1 % Basophils % 1 % Neutrophils # 12.1 H (1.3-7.7) k/uL Lymphocytes # 1.9 (1.0-4.8) k/uL Monocytes # 0.6 (0-1.0) k/uL Eosinophils # 0.2 (0-0.7) k/uL Basophils # 0.1 (0-0.2) k/uL Hypochromasia Moderate Poikilocytosis Slight Anisocytosis Slight Microcytosis Moderate Sodium 137 (137-145) mmol/L Potassium 3.3 L (3.5-5.1) mmol/L Chloride 100 (98-107) mmol/L Carbon Dioxide 27 (22-30) mmol/L Anion Gap 10 mmol/L BUN 5 L (7-17) mg/dL Creatinine 0.83 (0.52-1.04) mg/dL Est GFR (CKD-EPI)AfAm >90 (>60 ml/min/1.73 sqM) Est GFR (CKD-EPI)NonAf 89 (>60 ml/min/1.73 sqM) Glucose 124 H (74-99) mg/dL Plasma Lactic Acid Kalia (0.7-2.0) mmol/L Calcium 8.6 (8.4-10.2) mg/dL Total Bilirubin 0.8 (0.2-1.3) mg/dL AST 25 (14-36) U/L ALT 23 (9-52) U/L Alkaline Phosphatase 109 (38-126) U/L Total Protein 6.8 (6.3-8.2) g/dL Albumin 3.6 (3.5-5.0) g/dL Amylase 53 (30-110) U/L Lipase 101 (23-300) U/L Urine Color Yellow Urine Appearance Clear (Clear) Urine pH 6.5 (5.0-8.0) Ur Specific Miles 1.018 (1.001-1.035) Urine Protein 1+ H (Negative) Urine Glucose (UA) Negative (Negative) Urine Ketones Negative (Negative) Urine Blood Trace H (Negative) Urine Nitrite Negative (Negative) Urine Bilirubin Negative (Negative) Urine Urobilinogen 4.0 (<2.0) mg/dL Ur Leukocyte Esterase Small H (Negative) Urine RBC <1 (0-5) /hpf Urine WBC 16 H (0-5) /hpf Ur Squamous Epith Cells 1 (0-4) /hpf Urine Mucus Few H (None) /hpf 05/13/19 Range/Units 18:21 WBC (3.8-10.6) k/uL RBC (3.80-5.40) m/uL Hgb (11.4-16.0) gm/dL Hct (34.0-46.0) % MCV (80.0-100.0) fL MCH (25.0-35.0) pg MCHC (31.0-37.0) g/dL RDW (11.5-15.5) % Plt Count (150-450) k/uL Neutrophils % % Lymphocytes % % Monocytes % % Eosinophils % % Basophils % % Neutrophils # (1.3-7.7) k/uL Lymphocytes # (1.0-4.8) k/uL Monocytes # (0-1.0) k/uL Eosinophils # (0-0.7) k/uL Basophils # (0-0.2) k/uL Hypochromasia Poikilocytosis Anisocytosis Microcytosis Sodium (137-145) mmol/L Potassium (3.5-5.1) mmol/L Chloride (98-107) mmol/L Carbon Dioxide (22-30) mmol/L Anion Gap mmol/L BUN (7-17) mg/dL Creatinine (0.52-1.04) mg/dL Est GFR (CKD-EPI)AfAm (>60 ml/min/1.73 sqM) Est GFR (CKD-EPI)NonAf (>60 ml/min/1.73 sqM) Glucose (74-99) mg/dL Plasma Lactic Acid Kalia 1.1 (0.7-2.0) mmol/L Calcium (8.4-10.2) mg/dL Total Bilirubin (0.2-1.3) mg/dL AST (14-36) U/L ALT (9-52) U/L Alkaline Phosphatase (38-126) U/L Total Protein (6.3-8.2) g/dL Albumin (3.5-5.0) g/dL Amylase (30-110) U/L Lipase (23-300) U/L Urine Color Urine Appearance (Clear) Urine pH (5.0-8.0) Ur Specific Miles (1.001-1.035) Urine Protein (Negative) Urine Glucose (UA) (Negative) Urine Ketones (Negative) Urine Blood (Negative) Urine Nitrite (Negative) Urine Bilirubin (Negative) Urine Urobilinogen (<2.0) mg/dL Ur Leukocyte Esterase (Negative) Urine RBC (0-5) /hpf Urine WBC (0-5) /hpf Ur Squamous Epith Cells (0-4) /hpf Urine Mucus (None) /hpf Disposition Clinical Impression: Perforated appendicitis Disposition: OTHER INSTITUTION NOT DEFINED Condition: Serious Referrals: Heri Moore III, MD [Primary Care Provider] - 1-2 days - Out of Hospital Transfer - Req. Specs Out of Hospital Transfer - Requested Specifics: Other Emergency Center ([facility] [place]
[2019-05-14] MEDS ORDERED: PIPERACILLIN-TAZOBACTAM 3.375 GM in SODIUM CHLORIDE 0.9% 100 ML IVPB SCH ×2
== END 2019-05-13 21:48 | disposition other institution (70) ==
LOC: EC 17:47
DX: D72.829 Elevated white blood cell count, unspecified (principal); K35.32 Acute appendicitis with perforation, localized peritonitis, and gangrene, without abscess; E87.6 Hypokalemia; D64.9 Anemia, unspecified; E11.65 Type 2 diabetes mellitus with hyperglycemia; R05 Cough; R09.89 Other specified symptoms and signs involving the circulatory and respiratory systems; G43.909 Migraine, unspecified, not intractable, without status migrainosus; Z86.14 Personal history of Methicillin resistant Staphylococcus aureus infection; Z79.1 Long term (current) use of non-steroidal anti-inflammatories (NSAID); Z79.899 Other long term (current) drug therapy; Z91.040 Latex allergy status
CPT/HCPCS: 36415; 80053; 82150; 83605; 83690; 85025; 81001; 87040; 71046; 74177; 99285; 96365; 96366; 96368; 96375 ×2; 96376; 96361; J2543; J2405; J1170 ×2; J3480; Q9967

== ENCOUNTER → 2019-07-28 | Outpatient (CLI) | payer OTHER ==
--- NOTE | 2019-07-28 09:57 | MM ---
Reason for exam: clinical finding. Baseline mammogram. Physical Findings: Nurse Summary: 0.5cm nodule in the right breast at 10 o'clock and 7 o'clock, a 0.5 nodule in the left breast (nurse kp). MG Diagnostic Mammo w CAD CARI Bilateral CC and MLO view(s) were taken. The breast tissue is heterogeneously dense. This may lower the sensitivity of mammography. There is no discrete abnormality including area of concern. Global asymmery upper outer right breast. These results were verbally communicated with the patient and result sheet given to the patient on 07/28/19. ASSESSMENT: Incomplete: need additional imaging evaluation, BI-RAD 0 RECOMMENDATION: Ultrasound of both breasts. Manage patient on a clinical basis.
--- NOTE | 2019-07-28 10:00 | USB ---
Reason for exam: additional evaluation requested from abnormal screening. US Breast BILAT Right complete breast ultrasound includes all four quadrants, the retroareolar region and axilla. Finding demonstrates a 10 x 6 x 7mm lobular, cystic lesion at 10 o'clock and a 8mm oval lymph node at the axilla tail. Left complete breast ultrasound includes all four quadrants, the retroareolar region and axilla. Finding demonstrates a 3 x 3mm oval lymph noded at 1 o'clock and a 7mm oval lymph node at the axilla tail. These results were verbally communicated with the patient and result sheet given to the patient on 07/28/19. ASSESSMENT: Benign, BI-RAD 2 RECOMMENDATION: Routine screening mammogram of both breasts in 1 year. Manage patient on a clinical basis.
== END ==
LOC: RADMAMWWP 07:43
PROVIDERS: ATTEND Family Medicine
DX: R92.8 Other abnormal and inconclusive findings on diagnostic imaging of breast (principal); N63.10 Unspecified lump in the right breast, unspecified quadrant; N63.20 Unspecified lump in the left breast, unspecified quadrant
CPT/HCPCS: 77066

== ENCOUNTER 2019-09-05 08:27 | Emergency (ER) | payer OTHER ==
[2019-09-05] MEDS ORDERED: SODIUM CHLORIDE 0.9% 1,000 ML IV STA (08:48)
[2019-09-05 09:23] LABS: Basophils % (A) 1 %; Eosinophils # (A) 0.6 k/uL (0-0.7); Eosinophils % (A) 8 %; HCT 36.9 % (34.0-46.0); Lymphocytes # (A) 2.2 k/uL (1.0-4.8); Lymphocytes % (A) 30 %; MCH 26.3 pg (25.0-35.0); MCHC 32.5 g/dL (31.0-37.0); Mean Platelet Volume 7.8; Monocytes # (A) 0.3 k/uL (0-1.0); Monocytes % (A) 5 %; Neutrophils # (A) 3.9 k/uL (1.3-7.7); Neutrophils % (A) 55 %; Platelet Count 260 k/uL (150-450); RBC 4.56 m/uL (3.80-5.40); RDW 13.4 % (11.5-15.5); WBC 7.1 k/uL (3.8-10.6)
[2019-09-05 09:24] LABS: Appearance,Urine Clear (Clear); Bilirubin,Urine Negative (Negative); Blood,Urine Negative (Negative); Color,Urine Yellow; Glucose,Urine (UA) Negative (Negative); Ketones,Urine Negative (Negative); Leukocyte Esterase,Urine Negative (Negative); Nitrite,Urine Negative (Negative); PH, Urine 5.5 (5.0-8.0); Protein,Urine Negative (Negative); Specific Gravity,Urine 1.012 (1.001-1.035); Urobilinogen,Urine <2.0 mg/dL (<2.0)
[2019-09-05] MEDS ORDERED: IOPAMIDOL CONTRAST (ORAL USE) VIAL PO PRN (09:30)
[2019-09-05 09:32] LABS: ALT 13 U/L (4-34); AST 25 U/L (14-36); African American GFR (CKD) >90 (>60 ml/min/1.73 sqM); Alkaline Phosphatase 64 U/L (38-126); Amylase 75 U/L (30-110); Anion Gap 10 mmol/L; Blood Urea Nitrogen 10 mg/dL (7-17); Calcium 9.1 mg/dL (8.4-10.2); Carbon Dioxide 22 mmol/L (22-30); Chloride 107 mmol/L (98-107); Glucose 137 mg/dL (74-99); Non-African American GFR(CKD) >90 (>60 ml/min/1.73 sqM); Potassium 4.5 mmol/L (3.5-5.1); Sodium 139 mmol/L (137-145); Total Bilirubin 0.7 mg/dL (0.2-1.3); Total Protein 7.1 g/dL (6.3-8.2)
--- NOTE | 2019-09-05 09:50 | ED ---
General Adult HPI - General Chief complaint: Abdominal Pain Stated complaint: Abd pain Time Seen by Provider: 09/05/19 08:40 Source: patient, RN notes reviewed Mode of arrival: ambulatory Limitations: no limitations - History of Present Illness Initial comments: 39-year-old female presents to the emergency department for a chief complaint of left upper quadrant abdominal pain. This started last night and then worsened this morning. Patient states the pain worsens when she sits up and walks. Denies any associated nausea vomiting diarrhea. Denies fevers or chills. Denies radiating pain. Patient states she did have an appendectomy 2 weeks ago after she had a perforation of her appendix. However she has not had any complications since that time. Patient has no other complaints at this time including shortness of breath, chest pain, nausea or vomiting, headache, or visual changes. - Related Data Home Medications Medication Instructions Recorded Confirmed Ascorbic Acid [Vitamin C] 500 mg PO DAILY 05/15/16 11/29/18 Cholecalciferol [Vitamin D3] 1,000 unit PO DAILY 05/15/16 11/29/18 Ferrous Sulfate [Feosol] 325 mg PO DAILY 05/15/16 11/29/18 Multivitamins, Thera [Multivitamin] 1 tab PO DAILY 05/27/16 11/29/18 Rizatriptan Benzoate [Maxalt] 10 mg PO DAILY PRN 05/27/16 11/29/18 Aspirin/Acetaminophen/Caffeine 2 tab PO Q8H PRN 10/29/16 11/29/18 [Excedrin Migraine Caplet] Naproxen Sodium [Aleve] 440 mg PO Q12HR 11/29/18 11/29/18 SUMAtriptan SUCCINATE [Imitrex] 50 mg PO DAILY PRN 11/29/18 11/29/18 Topiramate [Topamax] 200 mg PO BID 11/29/18 11/29/18 Previous Rx's Medication Instructions Recorded Omeprazole 40 mg PO DAILY 14 Days #14 05/06/19 capsule. Ondansetron Odt [Zofran Odt] 4 mg PO Q8HR PRN #10 tab 05/06/19 Allergies Allergy/AdvReac Type Severity Reaction Status Date / Time latex Allergy Mild Rash/Hives Verified 09/05/19 08:33 Review of Systems ROS Statement: Those systems with pertinent positive or pertinent negative responses have been documented in the HPI. ROS Other: All systems not noted in ROS Statement are negative. Past Medical History Past Medical History: Diabetes Mellitus Additional Past Medical History / Comment(s): gestational diabetes hy drocephalus, migraines History of Any Multi-Drug Resistant Organisms: MRSA Date of last positivie culture/infection: 2010 MDRO Source:: upper left thigh Past Surgical History: Appendectomy Additional Past Surgical History / Comment(s): 1. Laparoscopy 2. D&C Past Anesthesia/Blood Transfusion Reactions: No Reported Reaction Past Psychological History: No Psychological Hx Reported Smoking Status: Never smoker Past Alcohol Use History: Rare Past Drug Use History: None Reported - Past Family History Mother Family Medical History: Cancer General Exam Limitations: no limitations General appearance: alert, in no apparent distress Head exam: Present: atraumatic, normocephalic, normal inspection Eye exam: Present: normal appearance, PERRL, EOMI. Absent: scleral icterus, co njunctival injection, periorbital swelling ENT exam: Present: normal exam, mucous membranes moist Neck exam: Present: normal inspection. Absent: tenderness, meningismus, lymphadenopathy Respiratory exam: Present: normal lung sounds bilaterally. Absent: respiratory distress, wheezes, rales, rhonchi, stridor Cardiovascular Exam: Present: regular rate, normal rhythm, normal heart sounds. Absent: systolic murmur, diastolic murmur, rubs, gallop, clicks GI/Abdominal exam: Present: soft, tenderness (patient does have tenderness noted LUQ and epigastric area. no ruq tenderness, neg lanier sign. no tenderness in the lower abdomen), normal bowel sounds. Absent: distended, guarding, rebound, rigid Course Vital Signs 09/05/19 09/05/19 09/05/19 08:30 10:13 14:30 Temperature 97.3 F L 98.1 F Pulse Rate 70 67 83 Respiratory 18 18 16 Rate Blood Pressure 132/85 115/75 125/69 O2 Sat by Pulse 99 98 99 Oximetry - Reevaluation(s) Reevaluation #1: 09/05/19 11:41 I spoke with Criselda Gibbons at Dr. Home Raines's office. States that she will call the surgeon about the CT results after we fax the CT report. Caro, varnishing unit tool setter currently in the process of doing this Reevaluation #2: 09/05/19 13:01 Attempted to speak to surgeon for 2 hours, office staff will not page surgeon until CT report was faxed. I have tried multiple different fax machines and multiple different numbers and we cannot fax this paperwork. I requested to speak directly with the surgeon several times to read him the report. At this point Dr. Carmona and I made the decision to transfer the patient to [facility] [place] given delay in care and concern for pneumoperitonieum 09/05/19 13:[address] Raines about patient. Given CT findings, he does agree with recommendation to transfer patient so he can personally evaluate her. States he would like a call from the ER when she is received. Medical Decision Making - Medical Decision Making Patient had colonoscopy on August 21 an appendectomy on August [address] Home Raines out of [facility] [place]. Drain was pulled May 24 . Today patient is having significant left upper quadrant tenderness and pain. CBC CMP and urinalysis unremarkable. CT abdomen and pelvis revealed a small amount of pneumoperitoneum left pelvis and lower quadrant which is felt abnormal 2 weeks after intra-abdominal surgery. A leak or organ rupture has to be considered. I was initially unable to discuss this case with Dr. Raines. At this point given I am unable to speak with her surgeon Dr. Carmona and I have decided it is safest for patient to transfer her to [facility] [place] so their surgical team can deliver care to this patient. I was able to speak with Dr. Raines, agrees with recommendation of transfer at this time. [facility] [place] Dr Schneider accepted transfer - Lab Data Result diagrams: 09/05/19 09:02 09/05/19 09:02 Lab Results 09/05/19 09/05/19 09/05/19 Range/Units 09:02 09:02 09:02 WBC 7.1 (3.8-10.6) k/uL RBC 4.56 (3.80-5.40) m/uL Hgb 12.0 (11.4-16.0) gm/dL Hct 36.9 (34.0-46.0) % MCV 81.0 (80.0-100.0) fL MCH 26.3 (25.0-35.0) pg MCHC 32.5 (31.0-37.0) g/dL RDW 13.4 (11.5-15.5) % Plt Count 260 (150-450) k/uL Neutrophils % 55 % Lymphocytes % 30 % Monocytes % 5 % Eosinophils % 8 % Basophils % 1 % Neutrophils # 3.9 (1.3-7.7) k/uL Lymphocytes # 2.2 (1.0-4.8) k/uL Monocytes # 0.3 (0-1.0) k/uL Eosinophils # 0.6 (0-0.7) k/uL Basophils # 0.0 (0-0.2) k/uL Sodium 139 (137-145) mmol/L Potassium 4.5 (3.5-5.1) mmol/L Chloride 107 (98-107) mmol/L Carbon Dioxide 22 (22-30) mmol/L Anion Gap 10 mmol/L BUN 10 (7-17) mg/dL Creatinine 0.66 (0.52-1.04) mg/dL Est GFR (CKD-EPI)AfAm >90 (>60 ml/min/1.73 sqM) Est GFR (CKD-EPI)NonAf >90 (>60 ml/min/1.73 sqM) Glucose 137 H (74-99) mg/dL Calcium 9.1 (8.4-10.2) mg/dL Total Bilirubin 0.7 (0.2-1.3) mg/dL AST 25 (14-36) U/L ALT 13 (4-34) U/L Alkaline Phosphatase 64 (38-126) U/L Total Protein 7.1 (6.3-8.2) g/dL Albumin 4.0 (3.5-5.0) g/dL Amylase 75 (30-110) U/L Lipase 227 (23-300) U/L Urine Color Urine Appearance (Clear) Urine pH (5.0-8.0) Ur Specific Register (1.001-1.035) Urine Protein (Negative) Urine Glucose (UA) (Negative) Urine Ketones (Negative) Urine Blood (Negative) Urine Nitrite (Negative) Urine Bilirubin (Negative) Urine Urobilinogen (<2.0) mg/dL Ur Leukocyte Esterase (Negative) Urine HCG, Qual Not Detected (Not Detectd) 09/05/19 Range/Units 09:02 WBC (3.8-10.6) k/uL RBC (3.80-5.40) m/uL Hgb (11.4-16.0) gm/dL Hct (34.0-46.0) % MCV (80.0-100.0) fL MCH (25.0-35.0) pg MCHC (31.0-37.0) g/dL RDW (11.5-15.5) % Plt Count (150-450) k/uL Neutrophils % % Lymphocytes % % Monocytes % % Eosinophils % % Basophils % % Neutrophils # (1.3-7.7) k/uL Lymphocytes # (1.0-4.8) k/uL Monocytes # (0-1.0) k/uL Eosinophils # (0-0.7) k/uL Basophils # (0-0.2) k/uL Sodium (137-145) mmol/L Potassium (3.5-5.1) mmol/L Chloride (98-107) mmol/L Carbon Dioxide (22-30) mmol/L Anion Gap mmol/L BUN (7-17) mg/dL Creatinine (0.52-1.04) mg/dL Est GFR (CKD-EPI)AfAm (>60 ml/min/1.73 sqM) Est GFR (CKD-EPI)NonAf (>60 ml/min/1.73 sqM) Glucose (74-99) mg/dL Calcium (8.4-10.2) mg/dL Total Bilirubin (0.2-1.3) mg/dL AST (14-36) U/L ALT (4-34) U/L Alkaline Phosphatase (38-126) U/L Total Protein (6.3-8.2) g/dL Albumin (3.5-5.0) g/dL Amylase (30-110) U/L Lipase (23-300) U/L Urine Color Yellow Urine Appearance Clear (Clear) Urine pH 5.5 (5.0-8.0) Ur Specific Register 1.012 (1.001-1.035) Urine Protein Negative (Negative) Urine Glucose (UA) Negative (Negative) Urine Ketones Negative (Negative) Urine Blood Negative (Negative) Urine Nitrite Negative (Negative) Urine Bilirubin Negative (Negative) Urine Urobilinogen <2.0 (<2.0) mg/dL Ur Leukocyte Esterase Negative (Negative) Urine HCG, Qual (Not Detectd) Disposition Clinical Impression: Pneumoperitoneum Disposition: OTHER INSTITUTION NOT DEFINED Condition: Fair Is patient prescribed a controlled substance at d/c from ED?: No Referrals: Heri Moore III, MD [Primary Care Provider] - 1-2 days Time of Disposition: 13:05 - Out of Hospital Transfer - Req. Specs Out of Hospital Transfer - Requested Specifics: Other Emergency Center ([facility])
--- NOTE | 2019-09-05 10:18 | CT ---
EXAMINATION TYPE: CT abdomen pelvis w con DATE OF EXAM: 09/05/2019 HISTORY: Left sided abdominal pain. Appendectomy and colonoscopy [address] DLP: 1094.2mGycm Automated Exposure Control for Dose Reduction was Utilized. CONTRAST: CT scan of the abdomen and pelvis is performed with IV Contrast, patient injected with 100 mL of Isov ue 300. COMPARISON: CT abdomen and pelvis May 13, 2019 FINDINGS: LUNG BASES: No significant abnormality is appreciated. LIVER/GB: Liver remains low dense consistent with diffuse fatty infiltration. PANCREAS: No significant abnormality is seen. SPLEEN: Mild splenomegaly redemonstrated at 13.8 cm at axial image19. ADRENALS: No significant abnormality is seen. KIDNEYS: Subcentimeter simple appearing cyst right kidney mid to lower pole level laterally image 38 series 301. BOWEL: Evaluation of bowel slightly suboptimal secondary to limited oral contrast. No suspicious smal l or large bowel dilatation. Low-lying cecum into the right pelvis. Surgical sutures from appendecto my extend superiorly and medially. Some foci of free air left lower quadrant are present for referenc e axial image 63. Additional small degree of free air axial image 66 towards the midline UTERUS/ADNEXA: Anteverted uterus. LYMPH NODES: No greater than 1cm abdominal or pelvic lymph nodes are appreciated. OSSEOUS STRUCTURES: No significant abnormality is seen. OTHER: Scar tissue left mid abdomen on axial image 45 likely from laparoscopic surgery. Tiny umbilica l hernia containing fat and mesenteric vessels. IMPRESSION: Small amount of pneumoperitoneum left pelvis and lower quadrant is felt Abnormal 2 weeks after intra-abdominal surgery. Source is not identified. Leak or organ rupture has to be considered.
[2019-09-05 14:42] VITALS: BP 125/69; PULSE 83; RESP 16; TEMP 98.1
== END 2019-09-05 14:30 | disposition other institution (70) ==
LOC: EC 08:27
DX: K66.8 Other specified disorders of peritoneum (principal); Z90.89 Acquired absence of other organs; Z91.040 Latex allergy status; Z79.1 Long term (current) use of non-steroidal anti-inflammatories (NSAID); Z79.899 Other long term (current) drug therapy
CPT/HCPCS: 99285; 96360; 96361 ×4; 36415; 80053; 82150; 83690; 85025; 81003; 81025; 74177; Q9967